=== PATIENT | female | born 2000 | race African-American/Black ===

== ENCOUNTER 2023-11-24 17:54 | Emergency (ER) | payer OTHER ==
[~2023-11-24] VITALS: Ht 160 cm; Wt 59.4 kg
[2023-11-24 18:05] VITALS: BP 114/68; TEMP 98.5; O2SAT 100
[2023-11-24] MEDS ORDERED: IBUP-1953 PO (19:29)
== END 2023-11-24 20:00 | disposition home or self-care (01) ==
LOC: ER 17:54
DX: S63.501A Unspecified sprain of right wrist, initial encounter (principal); S60.221A Contusion of right hand, initial encounter; Z88.0 Allergy status to penicillin; Z88.8 Allergy status to other drugs, medicaments and biological substances; Z60.2 Problems related to living alone; W18.30XA Fall on same level, unspecified, initial encounter; Y93.89 Activity, other specified; Y92.89 Other specified places as the place of occurrence of the external cause; Y99.8 Other external cause status
CPT/HCPCS: 73110; 73130-TC